=== PATIENT | female | born 1945 | race Caucasian/White ===

== ENCOUNTER → 2016-10-05 | Outpatient (CLI) | payer OTHER ==
[2012-05-19 08:45] VITALS: BP 102/50
--- NOTE | 2016-10-05 11:20 | RAD ---
HISTORY: Neck pain radiating down the right arm. No history of injury. Study: Three-view cervical spine Comparison: No priors Findings: No fracture is seen. There is a 3 millimeter forward subluxation of C7 upon T1. Disc space narrowing and marginal spondylosis is present at C4-5, C5-6 and C6-7. Odontoid is unremarkable. IMPRESSION: No fracture. 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 Multilevel disc space narrowing and marginal spondylosis. Recommend: MRI evaluation of the cervical spine. Reported By:
== END ==
LOC: RAD 10:24
PROVIDERS: ATTEND Nurse Practitioner Family
DX: M54.2 Cervicalgia (principal)
CPT/HCPCS: 72040

== ENCOUNTER → 2016-10-12 | Outpatient (CLI) | payer OTHER ==
[2012-05-19 08:45] VITALS: BP 102/50
--- NOTE | 2016-10-12 11:36 | MRI ---
HISTORY: Neck pain Study: MRI cervical spine without contrast Comparison: None Technique: Multiplanar multisequence MRI of the cervical spine was obtained utilizing standard depar tmental protocol. Findings: Alignment of the cervical spine is maintained. There is abnormal T2 signal in the right side of the C3 vertebral body and the left side of the T3 vertebral body. There is also a small focus of abnorma l signal in the left side of the C3 vertebral body. These lesions are not definitely visible on the T1 series. 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 However other etiologies such as metastasis cannot be entirely excluded. Correlation with nuclear medicine bone scan is recom mended. Alternatively com a sagittal axial and coronal pre and post-contrast T1 weighted MRI imaging could be considered. No evidence for fracture or significant bone or edema can be seen. The surro unding soft tissues are unremarkable. The cervical spinal cord is normal in size and configuration and without foci of abnormal signal. C2 -- C3: No evidence for compressive disc disease. The neural foramina are patent. C3 -- C4: No evidence for compressive disc disease. The neural foramina are patent. C4 -- C5: Mild broad-based disk bulging effaces the thecal sac and contributes to mild canal stenosi s but no cord compression. The neural foramina are patent. C5 -- C6: Broad-based disk bulging effaces the thecal sac contributing to mild canal stenosis but no cord compression. The neural foramina are patent. C6 -- C7: Broad-based disc protrusion extends somewhat more to the left than the right. It contribut es to mild canal stenosis but no significant cord compression. It does contribute to foraminal narro wing on the left. The right neural foramen is patent. C7 -- T1: No evidence for compressive disc disease. The neural foramina are patent. IMPRESSION: Foci of abnormal signal in C2, C3, and T3 as described above possibly atypical hemangiomatous change however metastatic disease knees to be excluded. Correlation with nuclear medicine bone scan and or axial, sagittal, coronal pre and post-contrast T1 weighted MRI images is recommended. Disc level findings detailed for each disc level above Reported By:
== END | disposition home or self-care (01) ==
LOC: RAD 09:12
PROVIDERS: ATTEND Nurse Practitioner Family
DX: M54.12 Radiculopathy, cervical region (principal); M50.33 Other cervical disc degeneration, cervicothoracic region
CPT/HCPCS: 72141

== ENCOUNTER → 2016-10-21 | Outpatient (CLI) | payer OTHER ==
[2012-05-19 08:45] VITALS: BP 102/50
--- NOTE | 2016-10-21 14:09 | NM ---
BONE SCAN CLINICAL INDICATION: Neck pain PROCEDURE: Approximately 2-4 hours following intravenous administration of 20.7 mCi of [id number], w hole body delayed planar images were obtained from the anterior and posterior projections. COMPARISON: None FINDINGS: There is normal by distribution of the radiotracer within the axial and appendicular skeleton. There is normal by distribution of the radiotracer within the genitourinary system and soft tissues. IMPRESSION: 1. Normal bone scan. Reported By:
== END ==
LOC: RAD 09:16
PROVIDERS: ATTEND Nurse Practitioner Family
DX: M54.2 Cervicalgia (principal)
CPT/HCPCS: 78306

== ENCOUNTER → 2016-12-22 | Outpatient (CLI) | payer OTHER ==
[2012-05-19 08:45] VITALS: BP 102/50
[2016-12-22 11:10] LABS: ALANINE AMINOTRANSFERASE 22 Units/L (12-78); ALBUMIN 3.8 g/dL (3.4-5.0); ALKALINE PHOSPHATASE 78 Units/L (46-116); ASPARTATE AMINO TRANSFERASE 22 Units/L (15-37); BLOOD UREA NITROGEN 18 mg/dL (7-18); CALCIUM 8.8 mg/dL (8.5-10.1); CARBON DIOXIDE 29.9 mmol/L (21-32); CHLORIDE 107 mmol/L (98-107); CREATININE 1.07 mg/dL (0.55-1.02); FREE T4 (FREE THYROXINE) 1.29 ng/dL (0.76-1.46); SODIUM 143 mmol/L (136-145); TOTAL PROTEIN 7.2 g/dL (6.4-8.2); TSH (3RD GENERATION) 0.041 uIU/mL (0.358-3.74); eGFR BLACK RACES > 60 (>60); eGFR NON BLACK RACES 54 (>60)
== END ==
LOC: LAB 09:34
PROVIDERS: ATTEND Specialist
DX: C73 Malignant neoplasm of thyroid gland (principal); R73.01 Impaired fasting glucose; E89.0 Postprocedural hypothyroidism
CPT/HCPCS: 36415; 80053; 82308; 84439; 84443; 86800

== ENCOUNTER → 2017-02-18 | Outpatient (CLI) | payer OTHER ==
[2012-05-19 08:45] VITALS: BP 102/50
--- NOTE | 2017-02-23 08:35 | MG ---
HISTORY: SCREENING Comparison: 02/10/2016 FINDINGS: CC and MLO projections of the right and left breast were obtained. Scattered fibroglandular tissue i s present. No significant architectural distortion, mass or clustered microcalcifications can be obs erved to suggest malignancy. No skin thickening or nipple retraction is appreciated. No pathologica l lymphadenopathy can be identified. Benign calcifications are seen bilaterally. IMPRESSION: NO RADIOGRAPHIC EVIDENCE OF MALIGNANCY. ACR CATEGORY 2: Benign findings. FOLLOW-UP EXAM 1 YEAR. Diagnostic CAD was utilized and reviewed. * 0 (ZERO) - ASSESSMENT INCOMPLETE; ADDITIONAL IMAGING IS NEEDED. * 1/ (ONE) - NEGATIVE. * 2/II (TWO) - BENIGN FINDINGS. * 3/III (THREE) - PROBABLY BENIGN FINDING; SHORT INTERVAL FOLLOW-UP SUGGESTED. * 4/IV (FOUR) - SUSPICIOUS ABNORMALITY; BIOPSY SHOULD BE CONSIDERED. * 5/V - HIGHLY SUSPICIOUS OF MALIGNANCY; BIOPSY SHOULD BE PERFORMED. A NEGATIVE X-RAY REPORT SHOULD NOT DELAY BIOPSY IF A DOMINANT OR CLINICALLY SUSPICIOUS MASS IS PRESENT; 4 TO 8 PERCENT OF CANCERS ARE NOT IDENTIFIED BY X-RAY. A NEGA TIVE REPORT MAY REINFORCE THE CLINICAL IMPRESSION. ADENOSIS AND DENSE BREASTS MAY OBSCURE AN UNDERLY ING NEOPLASM. Reported By:
== END ==
LOC: RAD 13:20
PROVIDERS: ATTEND Specialist
DX: Z12.31 Encounter for screening mammogram for malignant neoplasm of breast (principal)
CPT/HCPCS: 77067

== ENCOUNTER 2017-06-10 07:18 | Day surgery (SDC) | payer OTHER ==
[2017-06-10] MEDS ORDERED: D5 LR 1000 ML 1,000 ML IV ONE (07:26)
[2017-06-10] MEDS ORDERED: DIPRIVAN VIAL 20 ML ONE (08:55)
[2017-06-10 09:35] VITALS: BP 144/72
== END 2017-06-10 09:35 | disposition home or self-care (01) ==
LOC: SURG1 07:18
PROVIDERS: ATTEND Internal Medicine Gastroenterology
PROC: 0DJD8ZZ Inspection of Lower Intestinal Tract, Via Natural or Artificial Opening Endoscopic (ICD-10-PCS; principal; 2017-06-10 11:00)
DX: K57.30 Diverticulosis of large intestine without perforation or abscess without bleeding (principal); K64.0 First degree hemorrhoids; Z86.010 Personal history of colon polyps; Z80.0 Family history of malignant neoplasm of digestive organs
CPT/HCPCS: 99100; A4217; J3490; J7120